=== PATIENT | female | born 1940 | race Caucasian/White ===

== ENCOUNTER 2018-04-25 20:51 | Inpatient (IN) | payer MEDICARE, MEDICAID ==
--- NOTE | 2018-04-25 21:00 | ED Physician Chart ---
ED Chief Complaint/HPI - Patient Information Date Seen:: 04/25/18 Time Seen:: 20:56 Chief Complaint:: SCHIZOPHRENIA FOR GEROPSYCH EVAL History of Present Illness:: 77 YR OLD FEMALE WITH SCHIZOPHRENIA HERE FOR PARTH PSYCH EVAL ED Review of Systems - Review of Systems General/Constitutional: No fever, No chills, No weight loss, No weakness, No diaphoresis, No edema, No loss of appetite Skin: No skin lesions, No rash, No bruising Head: No headache, No light-headedness Eyes: No loss of vision, No pain, No diplopia ENT: No earache, No nasal drainage, No sore throat, No tinnitus Neck: No neck pain, No swelling, No thyromegaly, No stiffness, No mass noted Cardio Vascular: No chest pain, No palpitations, No PND, No orthopnea, No edema Pulmonary: No SOB, No cough, No sputum, No wheezing GI: No nausea, No vomiting, No diarrhea, No pain, No melena, No hematochezia, No constipation, No hematemesis G/U: No dysuria, No frequency, No hematuria Musculoskeletal: No bone or joint pain, No back pain, No muscle pain Endocrine: No polyuria, No polydipsia Psychiatric: No prior psych history, No depression, No anxiety, No suicidal ideation Hematopoietic: No bruising, No lymphadenopathy Allergic/Immuno: No urticaria, No angioedema Neurological: No syncope, No focal symptoms, No weakness, No paresthesia, No headache, No seizure, No dizziness, No confusion, No vertigo ED Past Medical History - Past Medical History Past Medical History: Other (SCHIZOPHRENIA SEE LIST) ED Physical Exam - Physical Examination General/Constitutional: Awake, Well-developed, well-nourished, Alert, No distress, GCS 15, Non-toxic appearing, Ambulatory Head: Atraumatic Eyes: Lids, conjuctiva normal, PERRL, EOMI Skin: Nl inspection, No rash, No skin lesions, No ecchymosis, Well hydrated, No lymphadenopathy ENMT: External ears, nose nl, Nasal exam nl, Lips, teeth, gums nl Neck: Nontender, Full ROM w/o pain, No JVD, No nuchal rigidity, No bruit, No mass, No stridor Respiratory: Nl effort/Exclusion, Clear to Auscultation, No Wheeze/Rhonchi/Rales Cardio Vascular: RRR, No murmur, gallop, rubs, NL S1 S2 GI: No tenderness/rebounding/guarding, No organomegaly, No hernia, Normal BS's, Nondistended, No mass/bruits, No McBurney tenderness : No CVA tenderness Extremities: No tenderness or effusion, Full ROM, normal strength in all extremities, No edema, Normal digits & nails Neuro/Psych: Alert/oriented, DTR's symmetric, Normal sensory exam, Normal motor strength, Judgement/insight normal, Mood normal, Normal gait, No focal deficits Misc: Normal back, No paraspinal tenderness ED Assessment - Assessment General Assessment: SCHIZOPHRENIA FOR EVALUATION ED Septic Shock - . Is Septic Shock (SBP<90, OR Lactate>4 mmol\L) present?: No ED Reassessment (Disposition) - Reassessment Reassessment Condition:: Unchanged - Diagnosis Diagnosis:: SCHIZOPHRENIA AGITATION - Patient Disposition Discharge/Transfer:: Acute Care w/in this hosp Admitted to:: Med/Surg Condition at Disposition:: Stable
[2018-04-25 21:36] LABS: % BASOPHILS 0.2 % (0.0-2.0); % EOSINOPHILS 2.1 % (0.0-5.0); % LYMPHOCYTES 34.6 % (20.0-50.0); % NEUTROPHILS 55.1 % (40.0-80.0); EOSINOPHILE ABSOLUTE 0.1 Th/cmm (0.1-0.4); HEMATOCRIT 43.3 % (41.0-60); HEMOGLOBIN 14.1 gm/dL (12-16); LYMPHOCYTE ABSOLUTE 2.3 Th/cmm (1.5-3.0); MEAN CELL VOLUME 91.6 fl (81-100); MEAN CORPUSCULAR HEMOGLOBIN 29.9 pg (27.0-31.0); MEAN CORPUSCULAR HGB CONC 32.6 pg (28.0-36.0); MEAN PLATELET VOLUME 7.3 fl; MONOCYTE ABSOLUTE 0.5 Th/cmm (0.3-1.0); NEUTROPHILE ABSOLUTE 3.7 Th/cmm (1.8-8.0); PLATELET COUNT 340 Th/cmm (150-400); RED BLOOD COUNT 4.72 Mil/cmm (3.80-5.20); WHITE BLOOD COUNT 6.6 Th/cmm (4.8-10.8)
[2018-04-25 21:50] LABS: ALB/GLOB RATIO 1.3 (1.0-1.8); ALKALINE PHOSPHATASE 55 U/L (34-104); ANION GAP 12.5 (7.0-16.0); BILIRUBIN,TOTAL 0.2 mg/dL (0.3-1.0); BUN - UREA NITROGEN 18 mg/dL (7-25); CALCIUM SERUM 9.7 mg/dL (8.6-10.3); CARBON DIOXIDE 26.2 mEq/L (21.0-31.0); CHLORIDE 103 mEq/L (98-107); CREATININE - SERUM 0.9 mg/dL (0.6-1.2); GLUCOSE 135 mg/dL (70-105); POTASSIUM SERUM 3.7 mEq/L (3.5-5.1); SGOT 19 U/L (13-39); SGPT/ALT 15 U/L (7-52); SODIUM SERUM 138 mEq/L (136-145); TOTAL PROTEIN,SERUM 7.2 gm/dL (6.0-8.3)
[2018-04-25 22:38] LABS: URINE SOURCE CLEAN C
[2018-04-25 22:48] LABS: URINE BILIRUBIN NEGATIVE (NEGATIVE); URINE BLOOD NEGATIVE (NEGATIVE); URINE GLUCOSE (UA) NEGATIVE (NEGATIVE); URINE KETONE NEGATIVE (NEGATIVE); URINE LEUKOCYTE ESTERASE NEGATIVE (NEGATIVE); URINE NITRATE NEGATIVE (NEGATIVE); URINE PROTEIN NEGATIVE (NEGATIVE); URINE UROBILINOGEN 0.2 E.U./dL (0.2 - 1.0)
[2018-04-25 22:52] LABS: URINE CLARITY CLEAR (CLEAR); URINE COLOR COLORLESS
[2018-04-25 22:53] LABS: URINE MICROSCOPIC INDICATED? NO
[2018-04-26 01:35] VITALS: BP 128/68
[2018-04-26] MEDS ORDERED: Maalox 30 mL Cup PO PRN (01:53)
[2018-04-26] MEDS ORDERED: Acetaminophen 500 MG TAB PO PRN (01:53)
[2018-04-26 02:28] LABS: CHOLESTEROL 182 mg/dL (<200); HDL -HIGH DENSITY LIPOPROTEIN 53 mg/dL (23-92); TRIGLYCERIDES 205 mg/dL (<150)
[2018-04-26] MEDS: Multivitamin w/ Minerals Tab PO SCH (09:40)
--- NOTE | 2018-04-27 02:49 | Psychiatric Evaluation ---
DATE OF SERVICE: 04/26/2018 IDENTIFYING DATA: The patient is a 77-year-old woman, resident of [facility]. Information obtained directly by interviewing the patient as well as reviewing the admission papers. The patient is admitted, begun on a voluntary basis because of her agitation. The patient is reported to have been attempting to push the staff members while assisting in changing the ____ and gathering dirty clothes and ____ from the closet. The patient is becoming increasingly agitated and holding the trash and does not want to follow the directions and on that basis, the patient has been referred over here for further care. PAST PSYCHIATRIC HISTORY: The patient is reported to have been followed up by Dr. Gary Canela on an outpatient basis and has been treated with Depakote and Abilify. MEDICAL HISTORY AND PHYSICAL EXAMINATION: Requested to done by Dr. Silva. The patient's medical history significant for multiple medical problems like hyperlipidemia, GERD, COPD and arthritis. SUBSTANCE ABUSE HISTORY: None. MENTAL STATUS EXAMINATION: The patient is a 77-year-old woman looking her stated age, superficially cooperative. Eye contact is poor. Mood is noted to be irritable. Affect is constricted. Insight and judgment at this time are noted to be impaired. Impulse control is noted to be limited. Coping skills are noted to be limited. The patient has been getting easily irritable and is stating that there is no reason for her to be in here and she should be out. The patient's coping skills at this time are noted to be very poor. No side effects to the medications are noted. The patient is stating that she has been doing fairly well and could not figure it out why she has to be here. The patient is getting easily agitated. The patient's sleep is noted to be very poor. Appetite is noted to be fair at this time. The patient has short-term memory deficits, but long-term memory seems to be fair at this time. The patient is fully aware that she is at [facility]. IMPRESSION: AXIS I: Psychotic disorder, not otherwise specified. AXIS IB: Dementia and behavioral change, secondary trait. AXIS II: None. AXIS III: As per Dr. Silva. IMMEDIATE TREATMENT PLAN: The patient is going to be placed on the Seroquel and the patient is going to be encouraged to verbalize the concerns rather than to act out. The patient is going to be continued on the Depakote. ESTIMATED LENGTH OF STAY: 3-5 days. DISCHARGE CRITERIA: When the patient is no longer a threat to self or others and be able to cope up with the stress. JOB# [id number]
--- NOTE | 2018-04-27 03:56 | History & Physical ---
ADMIT DATE: 04/26/2018 CHIEF COMPLAINT: Agitation evaluation for her schizophrenia. HISTORY OF PRESENT ILLNESS: The patient is a 77-year-old female with a past medical history of schizophrenia, dementia, brought in from nursing facility for agitation. PAST MEDICAL HISTORY: Schizophrenia, dementia. MEDICATIONS: Per medication reconciliation sheet. ALLERGIES: NKDA. SOCIAL HISTORY: The patient lives in a nursing facility. REVIEW OF SYSTEMS: The patient was unable to give any meaningful history. FAMILY HISTORY: Not available. PHYSICAL EXAMINATION: VITAL SIGNS: Shows temperature is 97.6, pulse 100, respirations 20, blood pressure 139/58. GENERAL: The patient is comfortable lying in the bed, not in acute distress. HEENT: Head is normocephalic, atraumatic. Oral cavity moist, pink tongue. NECK: Supple, no JVD, no carotid bruit. Trachea midline. CHEST: Bilateral breath sounds. No crackles or wheezing. HEART: S1, S2 within normal limits. Regular rhythm. No murmur, no gallop. ABDOMEN: Soft, nontender, nondistended. Bowel sounds present. EXTREMITIES: No cyanosis, no clubbing, no edema. LABORATORY DATA: Current lab shows WBC 6600, hemoglobin 14.1, hematocrit 43.3, platelets are 340,000. Sodium 138, potassium 3.7, chloride 103, bicarbonate is 26, BUN is 18, creatinine 0.9, glucose 135. Urinalysis showed for negative nitrite, negative leukoesterase. Blood culture 2 sets are negative. IMPRESSION: 1. Agitation. 2. Schizophrenia. 3. Hypertension. PLAN: We will start Vasotec 5 mg p.o. daily and go from there. Check labs in the morning. JOB# [id number]
[2018-04-27] MEDS: Multivitamin w/ Minerals Tab PO SCH (09:38)
--- NOTE | 2018-04-27 15:56 | Infectious Disease Prog Note ---
Infectious Disease Subjective - Review of Systems Service Date: 04/27/18 Subjective: There is no new change, no fever,. Infectious Disease Objective - Results Result Diagrams: 04/25/18 21:21 04/25/18 21:21 Recent Labs: Laboratory Last Values WBC 6.6 Th/cmm (4.8-10.8) 04/25/18 21:21 RBC 4.72 Mil/cmm (3.80-5.20) 04/25/18 21:21 Hgb 14.1 gm/dL (12-16) 04/25/18 21:21 Hct 43.3 % (41.0-60) 04/25/18 21:21 MCV 91.6 fl (81-100) 04/25/18 21:21 MCH 29.9 pg (27.0-31.0) 04/25/18 21:21 MCHC Differential 32.6 pg (28.0-36.0) 04/25/18 21:21 RDW 13.0 % (11.5-20.0) 04/25/18 21:21 Plt Count 340 Th/cmm (150-400) 04/25/18 21:21 MPV 7.3 fl 04/25/18 21:21 Neutrophils % 55.1 % (40.0-80.0) 04/25/18 21:21 Lymphocytes % 34.6 % (20.0-50.0) 04/25/18 21:21 Monocytes % 8.0 % (2.0-10.0) 04/25/18 21:21 Eosinophils % 2.1 % (0.0-5.0) 04/25/18 21:21 Basophils % 0.2 % (0.0-2.0) 04/25/18 21:21 Sodium 138 mEq/L (136-145) 04/25/18 21:21 Potassium 3.7 mEq/L (3.5-5.1) 04/25/18 21:21 Chloride 103 mEq/L (98-107) 04/25/18 21:21 Carbon Dioxide 26.2 mEq/L (21.0-31.0) 04/25/18 21:21 Anion Gap 12.5 (7.0-16.0) 04/25/18 21:21 BUN 18 mg/dL (7-25) 04/25/18 21:21 Creatinine 0.9 mg/dL (0.6-1.2) 04/25/18 21:21 Est GFR ( Amer) TNP 04/25/18 21:21 Est GFR (Non-Af Amer) TNP 04/25/18 21:21 BUN/Creatinine Ratio 20.0 04/25/18 21:21 Glucose 135 mg/dL (70-105) H 04/25/18 21:21 Calcium 9.7 mg/dL (8.6-10.3) 04/25/18 21:21 Total Bilirubin 0.2 mg/dL (0.3-1.0) L 04/25/18 21:21 AST 19 U/L (13-39) 04/25/18 21:21 ALT 15 U/L (7-52) 04/25/18 21:21 Alkaline Phosphatase 55 U/L (34-104) 04/25/18 21:21 Total Protein 7.2 gm/dL (6.0-8.3) 04/25/18 21:21 Albumin 4.0 gm/dL (3.7-5.3) 04/25/18 21:21 Globulin 3.2 gm/dL 04/25/18 21:21 Albumin/Globulin Ratio 1.3 (1.0-1.8) 04/25/18 21:21 Triglycerides 205 mg/dL (<150) H 04/25/18 21:21 Cholesterol 182 mg/dL (<200) 04/25/18 21:21 LDL Cholesterol Direct 99 mg/dL (75-193) 04/25/18 21:21 HDL Cholesterol 53 mg/dL (23-92) 04/25/18 21:21 TSH 2.05 uIU/ml (0.34-5.60) 04/27/18 07:45 Urine Source CLEAN C 04/25/18 22:20 Urine Color COLORLESS 04/25/18 22:20 Urine Clarity CLEAR (CLEAR) 04/25/18 22:20 Urine pH 7.0 (4.6 - 8.0) 04/25/18 22:20 Ur Specific [place] <= 1.005 (1.005-1.030) 04/25/18 22:20 Urine Protein NEGATIVE mg/dL (NEGATIVE) 04/25/18 22:20 Urine Glucose (UA) NEGATIVE mg/dL (NEGATIVE) 04/25/18 22:20 Urine Ketones NEGATIVE mg/dL (NEGATIVE) 04/25/18 22:20 Urine Blood NEGATIVE (NEGATIVE) 04/25/18 22:20 Urine Nitrate NEGATIVE (NEGATIVE) 04/25/18 22:20 Urine Bilirubin NEGATIVE (NEGATIVE) 04/25/18 22:20 Urine Urobilinogen 0.2 E.U./dL (0.2 - 1.0) 04/25/18 22:20 Ur Leukocyte Esterase NEGATIVE (NEGATIVE) 04/25/18 22:20 Valproic Acid < 10.0 ug/mL (50.0-100.0) L 04/27/18 07:45 - Physical Exam Vitals and I&O: Vital Signs Temp 97.6 F 04/27/18 14:00 Pulse 99 04/27/18 14:00 Resp 20 04/27/18 14:00 BP 109/50 04/27/18 14:00 Pulse Ox 98 04/27/18 14:00 Intake & Output 04/26/18 04/27/18 04/27/18 18:59 06:59 18:59 Intake Total 900 240 Balance 900 240 Intake: Oral 900 240 Other: # Voids 4 3 # Bowel Movements 1 0 Stool Characteristics Soft Soft Active Medications: Current Medications Acetaminophen (Tylenol) 650 mg PO Q4HR PRN PRN Reason: Pain or Fever >101 Stop: 06/25/18 01:52 Acetaminophen (Tylenol Extra Strength) 1,000 mg PO Q4HR PRN PRN Reason: Pain (Moderate) Stop: 06/25/18 01:52 Al Hydrox/Mg Hydrox/Simethicone (Maalox) 30 ml PO Q4HR PRN PRN Reason: GI DISTRESS Stop: 06/25/18 01:52 Bisacodyl (Dulcolax 10 Mg Supp) 10 mg RC DAILY PRN PRN Reason: Constipation Stop: 06/25/18 01:52 Divalproex Sodium (Depakote Er) 500 mg PO DAILY [facility]; Protocol Stop: 06/24/18 22:59 Last Admin: 04/27/18 09:36 Dose: 500 mg Docusate Sodium (Colace) 250 mg PO DAILY [facility] Stop: 06/25/18 08:59 Last Admin: 04/27/18 09:47 Dose: Not Given Enalapril Maleate (Vasotec) 5 mg PO DAILY [facility] Stop: 06/26/18 08:59 Last Admin: 04/27/18 09:36 Dose: 5 mg Hydrochlorothiazide (Hctz) 25 mg PO DAILY [facility] Stop: 06/26/18 08:59 Last Admin: 04/27/18 09:36 Dose: 25 mg Lorazepam (Ativan) 0.5 mg PO Q4HR PRN; Protocol PRN Reason: Anxiety Stop: 05/25/18 22:59 Miscellaneous (Fenofibrate [Fenofibrate]) 54 mg PO DAILY [facility] Stop: 06/25/18 08:59 Quetiapine Fumarate (Seroquel) 12.5 mg PO HS [facility]; Protocol Stop: 06/25/18 20:59 Zolpidem Tartrate (Ambien) 5 mg PO HS PRN PRN Reason: Insomnia Stop: 06/24/18 22:59 Last Admin: 04/26/18 20:16 Dose: 5 mg General: no acute distress, well developed, well nourished HEENT: atraumatic, normocephalic, PERRLA Neck: supple, no thyromegaly Cardiovascular: S1S2, regular Lungs: clear to auscultation bilaterally, clear to percussion Abdomen: soft, no tender, no distended Extremities: no cyanosis, no clubbing, no edema Neurological: awake, alert, oriented Infectious Disease Assmt/Plan - Assessment Assessment: Continue the same treatment plan. - Plan Plan: Continue the same treatment plan.
--- NOTE | 2018-04-28 02:31 | Progress Notes ---
DATE: 04/27/2018 PSYCHIATRIC PROGRESS NOTE SUBJECTIVE: Staff was spoken to. The patient is interviewed. Mood is noted to be irritable. Affect is constricted. Insight and judgment noted to be still impaired. Impulse control is noted to be limited. Coping skills are noted to be limited. The patient is very confused at this time and has been constantly asking that she needs to be getting out of here. She has a plane waiting over there to take her to the detention facility. The patient is currently on 12.5 mg of the Seroquel and 500 mg of Depakote at bedtime. The patient has been able to tolerate the medication. ASSESSMENT: The patient is still confused and irritable. PLAN: To continue the patient with the supportive therapy, encouraged the patient to verbalize the concerns rather than to act out. JOB# [id number]
[2018-04-28] MEDS: Multivitamin w/ Minerals Tab PO SCH (09:29)
--- NOTE | 2018-04-28 09:59 | Consultation ---
DATE OF CONSULTATION: 04/27/2018 REFERRING PHYSICIAN: Ned Escoto MD TYPE OF CONSULTATION: Psychology. HISTORY OF PRESENT ILLNESS: The patient is a 77-year-old female. The patient is a resident of [facility]. The following is by record review and by the patient's self-report. The patient is being admitted due to increased agitation. The staff at the patient's facility report that she has attempted to push staff members and striking out at staff during care. The patient appears to be selectively mute as well as agitated and somewhat resistant during this clinical interview. PAST MEDICAL HISTORY: Please see history and physical by Dr. Silva. PAST PSYCHIATRIC HISTORY: The patient is being seen by Dr. Gary Curry at her placement. The patient has a history of dementia. There is a history of previous hospitalizations. SUBSTANCE ABUSE HISTORY: The patient did not answer these questions. PSYCHOSOCIAL HISTORY: The patient did not answer questions about occupational or educational history or yazidi affiliation. The patient did not answer questions about history of physical or sexual abuse or current legal problems. The patient did not answer the question regarding family members involved in her care. MENTAL STATUS EXAMINATION: The patient appears to be her stated age. The patient's attitude is superficially cooperative. Eye contact is poor. Speech is delayed. Mood is irritable. Affect is constricted. Thought process shows to be confused. The patient is stating that there is no reason for her to be hospitalized. The patient insists that she is doing fine. The patient denied any auditory or visual hallucinations. She denies any suicidal ideation, plan or intention. Impulse control is limited. Concentration is fair. The patient appears to have some short-term memory deficits. Long-term memory seems to be grossly intact. Sensorium is alert and oriented x 3. The patient did not participate in the interpretation of proverbs. Insight is poor. Judgment is compromised. DIAGNOSTIC IMPRESSION: AXIS I: 1. Psychotic disorder, not otherwise specified. 2. Dementia with behavioral disturbance. AXIS II: Deferred. AXIS III: Per Dr. Silva. TREATMENT PLAN: The patient has been seen by Dr. Escoto for psychiatric evaluation and for the management of the patient's psychotropic medications. We will provide supportive psychotherapy to include reality orientation, differentiation and integration. We will provide de-escalation as well as limit setting. We will encourage the patient to be able to demonstrate emotional and self-regulation prior to her discharge. We will provide coping skills and strategies for phase of life issues. We will encourage the patient and provide motivational enhancement for her to become compliant and stay compliant with all aspects of her care and treatment. Thank you, Dr. Escoto for this consult and the opportunity to participate in this patient's care. JOB# [id number] CAMILA
--- NOTE | 2018-04-28 14:12 | Infectious Disease Prog Note ---
Infectious Disease Subjective - Review of Systems Service Date: 04/28/18 Subjective: There is no new change, no fever,. Infectious Disease Objective - Results Result Diagrams: 04/25/18 21:21 04/25/18 21:21 Recent Labs: Laboratory Last Values WBC 6.6 Th/cmm (4.8-10.8) 04/25/18 21:21 RBC 4.72 Mil/cmm (3.80-5.20) 04/25/18 21:21 Hgb 14.1 gm/dL (12-16) 04/25/18 21:21 Hct 43.3 % (41.0-60) 04/25/18 21:21 MCV 91.6 fl (81-100) 04/25/18 21:21 MCH 29.9 pg (27.0-31.0) 04/25/18 21:21 MCHC Differential 32.6 pg (28.0-36.0) 04/25/18 21:21 RDW 13.0 % (11.5-20.0) 04/25/18 21:21 Plt Count 340 Th/cmm (150-400) 04/25/18 21:21 MPV 7.3 fl 04/25/18 21:21 Neutrophils % 55.1 % (40.0-80.0) 04/25/18 21:21 Lymphocytes % 34.6 % (20.0-50.0) 04/25/18 21:21 Monocytes % 8.0 % (2.0-10.0) 04/25/18 21:21 Eosinophils % 2.1 % (0.0-5.0) 04/25/18 21:21 Basophils % 0.2 % (0.0-2.0) 04/25/18 21:21 Sodium 138 mEq/L (136-145) 04/25/18 21:21 Potassium 3.7 mEq/L (3.5-5.1) 04/25/18 21:21 Chloride 103 mEq/L (98-107) 04/25/18 21:21 Carbon Dioxide 26.2 mEq/L (21.0-31.0) 04/25/18 21:21 Anion Gap 12.5 (7.0-16.0) 04/25/18 21:21 BUN 18 mg/dL (7-25) 04/25/18 21:21 Creatinine 0.9 mg/dL (0.6-1.2) 04/25/18 21:21 Est GFR ( Amer) TNP 04/25/18 21:21 Est GFR (Non-Af Amer) TNP 04/25/18 21:21 BUN/Creatinine Ratio 20.0 04/25/18 21:21 Glucose 135 mg/dL (70-105) H 04/25/18 21:21 Calcium 9.7 mg/dL (8.6-10.3) 04/25/18 21:21 Total Bilirubin 0.2 mg/dL (0.3-1.0) L 04/25/18 21:21 AST 19 U/L (13-39) 04/25/18 21:21 ALT 15 U/L (7-52) 04/25/18 21:21 Alkaline Phosphatase 55 U/L (34-104) 04/25/18 21:21 Total Protein 7.2 gm/dL (6.0-8.3) 04/25/18 21:21 Albumin 4.0 gm/dL (3.7-5.3) 04/25/18 21:21 Globulin 3.2 gm/dL 04/25/18 21:21 Albumin/Globulin Ratio 1.3 (1.0-1.8) 04/25/18 21:21 Triglycerides 205 mg/dL (<150) H 04/25/18 21:21 Cholesterol 182 mg/dL (<200) 04/25/18 21:21 LDL Cholesterol Direct 99 mg/dL (75-193) 04/25/18 21:21 HDL Cholesterol 53 mg/dL (23-92) 04/25/18 21:21 Vitamin B12 264 pg/mL (232-1245) 04/27/18 07:45 TSH 2.05 uIU/ml (0.34-5.60) 04/27/18 07:45 Urine Source CLEAN C 04/25/18 22:20 Urine Color COLORLESS 04/25/18 22:20 Urine Clarity CLEAR (CLEAR) 04/25/18 22:20 Urine pH 7.0 (4.6 - 8.0) 04/25/18 22:20 Ur Specific [place] <= 1.005 (1.005-1.030) 04/25/18 22:20 Urine Protein NEGATIVE mg/dL (NEGATIVE) 04/25/18 22:20 Urine Glucose (UA) NEGATIVE mg/dL (NEGATIVE) 04/25/18 22:20 Urine Ketones NEGATIVE mg/dL (NEGATIVE) 04/25/18 22:20 Urine Blood NEGATIVE (NEGATIVE) 04/25/18 22:20 Urine Nitrate NEGATIVE (NEGATIVE) 04/25/18 22:20 Urine Bilirubin NEGATIVE (NEGATIVE) 04/25/18 22:20 Urine Urobilinogen 0.2 E.U./dL (0.2 - 1.0) 04/25/18 22:20 Ur Leukocyte Esterase NEGATIVE (NEGATIVE) 04/25/18 22:20 Valproic Acid < 10.0 ug/mL (50.0-100.0) L 04/27/18 07:45 RPR NONREACTIVE (NONREACTIVE) 04/27/18 07:45 - Physical Exam Vitals and I&O: Vital Signs Temp 97.8 F 04/28/18 05:30 Pulse 98 04/28/18 09:28 Resp 20 04/28/18 08:00 BP 132/84 04/28/18 09:29 Pulse Ox 100 04/28/18 05:30 Intake & Output 04/27/18 04/28/18 04/28/18 18:59 06:59 18:59 Intake Total 960 120 Balance 960 120 Intake: Oral 960 120 Other: # Voids 3 2 # Bowel Movements 1 0 Stool Characteristics Soft Soft Soft Active Medications: Current Medications Acetaminophen (Tylenol) 650 mg PO Q4HR PRN PRN Reason: Pain or Fever >101 Stop: 06/25/18 01:52 Acetaminophen (Tylenol Extra Strength) 1,000 mg PO Q4HR PRN PRN Reason: Pain (Moderate) Stop: 06/25/18 01:52 Al Hydrox/Mg Hydrox/Simethicone (Maalox) 30 ml PO Q4HR PRN PRN Reason: GI DISTRESS Stop: 06/25/18 01:52 Bisacodyl (Dulcolax 10 Mg Supp) 10 mg RC DAILY PRN PRN Reason: Constipation Stop: 06/25/18 01:52 Divalproex Sodium (Depakote Er) 500 mg PO DAILY [facility]; Protocol Stop: 06/24/18 22:59 Last Admin: 04/28/18 09:27 Dose: 500 mg Docusate Sodium (Colace) 250 mg PO DAILY [facility] Stop: 06/25/18 08:59 Last Admin: 04/28/18 09:31 Dose: Not Given Enalapril Maleate (Vasotec) 5 mg PO DAILY [facility] Stop: 06/26/18 08:59 Last Admin: 04/28/18 09:28 Dose: 5 mg Hydrochlorothiazide (Hctz) 25 mg PO DAILY [facility] Stop: 06/26/18 08:59 Last Admin: 04/28/18 09:29 Dose: 25 mg Lorazepam (Ativan) 0.5 mg PO Q4HR PRN; Protocol PRN Reason: Anxiety Stop: 05/25/18 22:59 Miscellaneous (Fenofibrate [Fenofibrate]) 54 mg PO DAILY [facility] Stop: 06/25/18 08:59 Quetiapine Fumarate (Seroquel) 12.5 mg PO HS [facility]; Protocol Stop: 06/25/18 20:59 Last Admin: 04/27/18 20:33 Dose: 12.5 mg Zolpidem Tartrate (Ambien) 5 mg PO HS PRN PRN Reason: Insomnia Stop: 06/24/18 22:59 Last Admin: 04/27/18 20:33 Dose: 5 mg General: no acute distress, well developed, well nourished HEENT: atraumatic, normocephalic, PERRLA, EOMI, moist mucous membrane Neck: supple, no thyromegaly, no lymphadenopathy, no rigid, no lines, no tracheostomy Cardiovascular: S1S2, regular, no systolic murmur, no thrills, no gallops Lungs: clear to auscultation bilaterally, clear to percussion Abdomen: soft, bowel sounds, no tender, no distended, no hepatomegaly, no splenomegaly Extremities: no cyanosis, no clubbing, no edema Neurological: awake, alert, oriented Skin: intact Infectious Disease Assmt/Plan - Assessment Assessment: Continue the same treatment plan. - Plan Plan: Continue the same treatment plan. Nutritional Asmnt/Malnutr-PDOC - Dietary Evaluation Malnutrition Findings (Please click <Entered> for more info): Nutritional Asmnt/Malnutrition Start: 04/28/18 13: 19 Text: Status: Active Freq: Protocol: Document 04/28/18 13:20 [email or web address] (Rec: 04/28/18 13:26 [email or web address]) Nutritional Asmnt/Malnutrition Patient General Information Nutritional Screening Moderate Risk Diagnosis psychosis Pertinent Medical Hx/Surgical Hx schizophrenia, dementia Subjective Information Pt was alert, sitting in bed at time of visit. Pt states she is only here for tests and wants to go home. PO intake is 100% per EMR. Current Diet Order/ Nutrition Support low fiber, low fat, low cholesterol, low fat milk Pertinent Medications colace, seroquel, ambien Pertinent Labs 04/25 Glucose 135, triglycerides 205 Nutritional Hx/Data Height 1.57 m Height (Calculated Centimeters) 157.5 Current Weight (lbs) 58.06 kg Weight (Calculated Kilograms) 58.1 Weight (Calculated Grams) 61462.8 [place] Body Weight 110 Body Mass Index (BMI) 23.3 Weight Status Approriate GI Symptoms GI Symptoms None Last BM 04/27 Difficult in: None Food Allergies No Skin Integrity/Comment: [email or web address] 18 Current %PO Good (75-100%) Estimated Nutritional Goals BEE in Kcals: Using Current wt Calories/Kcals/Kg 25-30 Kcals Calculated 7793-2048 Protein: Using Current wt Protein g/k.8-1 Protein Calculated 46-58 Fluid: ml 8356-9671 (1ml/kcal) Nutritional Problem No current Nutrition Prob Problem N/A Malnutrition Alert Is there a minimum of two criteria No selected? Query Text:Check all the applicable criteria. A minimum of two criteria are recommended for diagnosis of either severe or non-severe malnutrition. Malnutrition Related to Morbid Obesity Malnutrition related to morbid obesity No Intervention/Recommendation Comments 1. Continue with regular diet as ordered 2. Monitor PO intake, wt, labs and skin integrity 3. F/U as low risk in 7 days, 05/05 Expected Outcomes/Goals Expected Outcomes/Goals Goal: PO intake to meet at least 75% of nutritional needs .
[2018-04-29] MEDS: Multivitamin w/ Minerals Tab PO SCH (08:22)
--- NOTE | 2018-04-29 09:51 | Progress Notes ---
DATE: 04/28/2018 SUBJECTIVE: Staff was spoken to. The patient is interviewed. Mood is noted to be irritable. Affect is constricted. Insight and judgment are noted to be still impaired. The patient has been constantly asking when she is going to be leaving. The patient has been getting easily frustrated. Insight and judgment at this time are noted to be still impaired. Impulse control is noted to be limited. The patient has been currently on Depakote and Seroquel, which is being given at 12.5 mg and it is going to be increased to 25 mg at bedtime and the patient is going to be followed up with the supportive therapy. ASSESSMENT: The patient is still impulsive. PLAN: To continue the patient with supportive therapy, encouraged the patient to verbalize the concerns rather than to act out. JOB# [id number]
--- NOTE | 2018-04-30 00:09 | Progress Notes ---
DATE: 04/29/2018 PSYCHIATRIC PROGRESS NOTE SUBJECTIVE: Staff was spoken to. The patient is interviewed. Mood is noted to be irritable. Affect is constricted. The patient is pacing on the unit. Coping skills at this time are noted to be extremely poor. Sleep and appetite also noted to be very poor. The patient has been insisting that we need to call the police for her to get out of here. ASSESSMENT: The patient is still paranoid and impulsive. PLAN: To continue the patient with the supportive therapy and followup. JOB# [id number]
[2018-04-30] MEDS: Fenofibrate, Micronized 134 mg Cap PO SCH (09:41)
[2018-04-30] MEDS: Multivitamin w/ Minerals Tab PO SCH (09:41)
--- NOTE | 2018-04-30 22:55 | Progress Notes ---
DATE: 04/30/2018 SUBJECTIVE: Staff was spoken to. The patient is interviewed. Mood is noted to be irritable. Affect is constricted. The patient's insight and judgment are noted to be still impaired. Impulse control is noted to be limited. The patient is currently on the valproic acid and Seroquel and has been able to tolerate the medication, but the patient has been focused on getting back to the [place]. ASSESSMENT: The patient is still psychotic and impulsive. PLAN: To continue the patient with the supportive therapy and current medications and followup. JOB# [id number]
[2018-05-01] MEDS: Multivitamin w/ Minerals Tab PO SCH (09:21)
--- NOTE | 2018-05-01 21:51 | Progress Notes ---
DATE: 05/01/[address] Escoto. SUBJECTIVE: She is a 77-year-old female, who was brought in here after the patient began presenting very agitated. She had attempted to push down staff members in a snf. She has a diagnosis of dementia and unspecified psychosis. HOSPITAL COURSE: The patient is currently being treated with Depakote 500 mg at bedtime, Vasotec, hydrochlorothiazide, TriCor, lorazepam as needed, Seroquel 25 mg p.o. at bedtime, and Ambien as needed. Nursing staff reported the patient continue to be have lot of redirection, wanders around the unit, pacing. Today on [id number] evaluation being mostly internally preoccupied and disengaged in the interview. ASSESSMENT AND PLAN: The patient with a history of severe dementia with behavioral disturbance and psychosis. Currently on Depakote and Seroquel. Tolerating medications well without complications or side effects of medication. We will continue monitoring and evaluating as medication continue to build steady state in her system. JOB# [id number]
[2018-05-02] MEDS: Fenofibrate, Micronized 134 mg Cap PO SCH (08:51)
[2018-05-02] MEDS: Multivitamin w/ Minerals Tab PO SCH (08:51)
[2018-05-03] MEDS: Multivitamin w/ Minerals Tab PO SCH (08:20)
--- NOTE | 2018-05-03 17:39 | Internal Medicine Prog Note ---
Internal Medicine Objective - Results Result Diagrams: 04/25/18 21:21 04/25/18 21:21 Recent Labs: Laboratory Last Values WBC 6.6 Th/cmm (4.8-10.8) 04/25/18 21:21 RBC 4.72 Mil/cmm (3.80-5.20) 04/25/18 21:21 Hgb 14.1 gm/dL (12-16) 04/25/18 21:21 Hct 43.3 % (41.0-60) 04/25/18 21:21 MCV 91.6 fl (81-100) 04/25/18 21:21 MCH 29.9 pg (27.0-31.0) 04/25/18 21:21 MCHC Differential 32.6 pg (28.0-36.0) 04/25/18 21:21 RDW 13.0 % (11.5-20.0) 04/25/18 21:21 Plt Count 340 Th/cmm (150-400) 04/25/18 21:21 MPV 7.3 fl 04/25/18 21:21 Neutrophils % 55.1 % (40.0-80.0) 04/25/18 21:21 Lymphocytes % 34.6 % (20.0-50.0) 04/25/18 21:21 Monocytes % 8.0 % (2.0-10.0) 04/25/18 21:21 Eosinophils % 2.1 % (0.0-5.0) 04/25/18 21:21 Basophils % 0.2 % (0.0-2.0) 04/25/18 21:21 Sodium 138 mEq/L (136-145) 04/25/18 21:21 Potassium 3.7 mEq/L (3.5-5.1) 04/25/18 21:21 Chloride 103 mEq/L (98-107) 04/25/18 21:21 Carbon Dioxide 26.2 mEq/L (21.0-31.0) 04/25/18 21:21 Anion Gap 12.5 (7.0-16.0) 04/25/18 21:21 BUN 18 mg/dL (7-25) 04/25/18 21:21 Creatinine 0.9 mg/dL (0.6-1.2) 04/25/18 21:21 Est GFR ( Amer) TNP 04/25/18 21:21 Est GFR (Non-Af Amer) TNP 04/25/18 21:21 BUN/Creatinine Ratio 20.0 04/25/18 21:21 Glucose 135 mg/dL (70-105) H 04/25/18 21:21 Calcium 9.7 mg/dL (8.6-10.3) 04/25/18 21:21 Total Bilirubin 0.2 mg/dL (0.3-1.0) L 04/25/18 21:21 AST 19 U/L (13-39) 04/25/18 21:21 ALT 15 U/L (7-52) 04/25/18 21:21 Alkaline Phosphatase 55 U/L (34-104) 04/25/18 21:21 Total Protein 7.2 gm/dL (6.0-8.3) 04/25/18 21:21 Albumin 4.0 gm/dL (3.7-5.3) 04/25/18 21:21 Globulin 3.2 gm/dL 04/25/18 21:21 Albumin/Globulin Ratio 1.3 (1.0-1.8) 04/25/18 21:21 Triglycerides 205 mg/dL (<150) H 04/25/18 21:21 Cholesterol 182 mg/dL (<200) 04/25/18 21:21 LDL Cholesterol Direct 99 mg/dL (75-193) 04/25/18 21:21 HDL Cholesterol 53 mg/dL (23-92) 04/25/18 21:21 Vitamin B12 264 pg/mL (232-1245) 04/27/18 07:45 TSH 2.05 uIU/ml (0.34-5.60) 04/27/18 07:45 Urine Source CLEAN C 04/25/18 22:20 Urine Color COLORLESS 04/25/18 22:20 Urine Clarity CLEAR (CLEAR) 04/25/18 22:20 Urine pH 7.0 (4.6 - 8.0) 04/25/18 22:20 Ur Specific [place] <= 1.005 (1.005-1.030) 04/25/18 22:20 Urine Protein NEGATIVE mg/dL (NEGATIVE) 04/25/18 22:20 Urine Glucose (UA) NEGATIVE mg/dL (NEGATIVE) 04/25/18 22:20 Urine Ketones NEGATIVE mg/dL (NEGATIVE) 04/25/18 22:20 Urine Blood NEGATIVE (NEGATIVE) 04/25/18 22:20 Urine Nitrate NEGATIVE (NEGATIVE) 04/25/18 22:20 Urine Bilirubin NEGATIVE (NEGATIVE) 04/25/18 22:20 Urine Urobilinogen 0.2 E.U./dL (0.2 - 1.0) 04/25/18 22:20 Ur Leukocyte Esterase NEGATIVE (NEGATIVE) 04/25/18 22:20 Valproic Acid < 10.0 ug/mL (50.0-100.0) L 04/27/18 07:45 RPR NONREACTIVE (NONREACTIVE) 04/27/18 07:45 - Physical Exam Vitals and I&O: Vital Signs Temp 97.2 F 05/03/18 14:00 Pulse 100 05/03/18 14:00 Resp 20 05/03/18 14:00 BP 157/72 05/03/18 14:00 Pulse Ox 99 05/03/18 14:00 Intake & Output 05/02/18 05/03/18 05/03/18 18:59 06:59 18:59 Intake Total 1600 240 Balance 1600 240 Intake: Oral 1600 240 Other: # Voids 4 2 # Bowel Movements 1 Stool Characteristics Soft Soft Soft Active Medications: Current Medications Acetaminophen (Tylenol) 650 mg PO Q4HR PRN PRN Reason: Pain or Fever >101 Stop: 06/25/18 01:52 Acetaminophen (Tylenol Extra Strength) 1,000 mg PO Q4HR PRN PRN Reason: Pain (Moderate) Stop: 06/25/18 01:52 Al Hydrox/Mg Hydrox/Simethicone (Maalox) 30 ml PO Q4HR PRN PRN Reason: GI DISTRESS Stop: 06/25/18 01:52 Bisacodyl (Dulcolax 10 Mg Supp) 10 mg RC DAILY PRN PRN Reason: Constipation Stop: 06/25/18 01:52 Divalproex Sodium (Depakote Er) 500 mg PO DAILY LAURIE; Protocol Stop: 06/24/18 22:59 Last Admin: 05/03/18 08:18 Dose: 500 mg Docusate Sodium (Colace) 250 mg PO DAILY LAURIE Stop: 06/25/18 08:59 Last Admin: 05/03/18 08:19 Dose: Not Given Enalapril Maleate (Vasotec) 5 mg PO DAILY LAURIE Stop: 06/26/18 08:59 Last Admin: 05/03/18 08:19 Dose: 5 mg Fenofibrate (Tricor) 134 mg PO QOD LAURIE Stop: 06/29/18 08:59 Last Admin: 05/02/18 08:51 Dose: 134 mg Hydrochlorothiazide (Hctz) 25 mg PO DAILY LAURIE Stop: 06/26/18 08:59 Last Admin: 05/03/18 08:19 Dose: 25 mg Lorazepam (Ativan) 0.5 mg PO Q4HR PRN; Protocol PRN Reason: Anxiety Stop: 05/25/18 22:59 Quetiapine Fumarate (Seroquel) 25 mg PO HS LAURIE; Protocol Stop: 06/27/18 20:59 Last Admin: 05/02/18 21:03 Dose: 25 mg Zolpidem Tartrate (Ambien) 5 mg PO HS PRN PRN Reason: Insomnia Stop: 06/24/18 22:59 Last Admin: 05/01/18 21:27 Dose: 5 mg Nutritional Asmnt/Malnutr-PDOC - Dietary Evaluation Malnutrition Findings (Please click <Entered> for more info): Nutritional Asmnt/Malnutrition Start: 04/28/18 13: 19 Text: Status: Complete Freq: Protocol: Document 04/28/18 13:20 [email or web address] (Rec: 04/28/18 13:26 [email or web address]) Nutritional Asmnt/Malnutrition Patient General Information Nutritional Screening Moderate Risk Diagnosis psychosis Pertinent Medical Hx/Surgical Hx schizophrenia, dementia Subjective Information Pt was alert, sitting in bed at time of visit. Pt states she is only here for tests and wants to go home. PO intake is 100% per EMR. Current Diet Order/ Nutrition Support low fiber, low fat, low cholesterol, low fat milk Pertinent Medications colace, seroquel, ambien Pertinent Labs 04/25 Glucose 135, triglycerides 205 Nutritional Hx/Data Height 1.57 m Height (Calculated Centimeters) 157.5 Current Weight (lbs) 58.06 kg Weight (Calculated Kilograms) 58.1 Weight (Calculated Grams) 75110.8 [place] Body Weight 110 Body Mass Index (BMI) 23.3 Weight Status Approriate GI Symptoms GI Symptoms None Last BM 04/27 Difficult in: None Food Allergies No Skin Integrity/Comment: georgina snow 18 Current %PO Good (75-100%) Estimated Nutritional Goals BEE in Kcals: Using Current wt Calories/Kcals/Kg 25-30 Kcals Calculated 4702-3549 Protein: Using Current wt Protein g/k.8-1 Protein Calculated 46-58 Fluid: ml 4085-5272 (1ml/kcal) Nutritional Problem No current Nutrition Prob Problem N/A Malnutrition Alert Is there a minimum of two criteria No selected? Query Text:Check all the applicable criteria. A minimum of two criteria are recommended for diagnosis of either severe or non-severe malnutrition. Malnutrition Related to Morbid Obesity Malnutrition related to morbid obesity No Intervention/Recommendation Comments 1. Continue with regular diet as ordered. Diet preference updated. 2. Monitor PO intake, wt, labs and skin integrity 3. F/U as low risk in 7 days, 05/05 Expected Outcomes/Goals Expected Outcomes/Goals Goal: PO intake to meet at least 75% of nutritional needs . Reviewed by Saniya Coronel RD
--- NOTE | 2018-05-03 18:45 | Progress Notes ---
DATE: 05/02/2018 The patient was seen and evaluated. The patient's chart reviewed. Covering for Dr. Escoto. Today on [id number] evaluation, the patient is observed to be a little more calmer. She has been wandering around the unit and pacing, and also noted to be internally preoccupied, although less intense. ASSESSMENT AND PLAN: We will continue with the primary psychiatrist's treatment plan, which includes Depakote and Seroquel as she continues to tolerate medications well and continue working very closely with her social work case manager for a safe disposition once the patient is further stable. JOB# [id number]
--- NOTE | 2018-05-04 01:34 | Progress Notes ---
DATE: 05/03/2018 SUBJECTIVE: Staff was spoken to. The patient is interviewed. Mood is noted to be irritable. Affect is constricted. Insight and judgment are noted to be still impaired. Impulse control is noted to be limited. Coping skills noted to be limited. The patient is getting easily agitated. The patient is currently on Seroquel, Depakote. The patient has been able to tolerate the medications. No side effects to the medications are noted. ASSESSMENT: The patient is still having mood swings. PLAN: To continue the patient with the supportive therapy, encouraged the patient to verbalize the concerns rather than to act out. JOB# [id number]
[2018-05-04] MEDS: Fenofibrate, Micronized 134 mg Cap PO SCH (09:14)
[2018-05-04] MEDS: Multivitamin w/ Minerals Tab PO SCH (09:14)
--- NOTE | 2018-05-04 21:07 | Progress Notes ---
DATE: 05/04/2018 SUBJECTIVE: Staff was spoken to. The patient is interviewed. Mood is noted to be anxious. Affect is appropriate. Not suicidal or homicidal. Insight and judgment are noted to be improving at this time. Impulse control is also noted to be fair. No side effects to the medications are noted. The patient has been able to verbalize the concerns rather than to act out. ASSESSMENT: The patient is stabilizing. PLAN: To continue the patient with the supportive therapy, encouraged the patient to verbalize the concerns rather than to act out. JOB# [id number]
== END 2018-05-04 12:30 | DRG 885 ==
LOC: ER 20:51 → MSI 22:29 → GERO 22:45
PROVIDERS: ADMIT Psychiatry & Neurology Psychiatry; ATTEND Psychiatry & Neurology Psychiatry
DX: F29 Unspecified psychosis not due to a substance or known physiological condition (principal); F03.91 Unspecified dementia, unspecified severity, with behavioral disturbance; I10 Essential (primary) hypertension; E78.5 Hyperlipidemia, unspecified; K21.9 Gastro-esophageal reflux disease without esophagitis; J44.9 Chronic obstructive pulmonary disease, unspecified; M19.90 Unspecified osteoarthritis, unspecified site
CPT/HCPCS: 36415-UA; 80053-TC; 80061-TC; 80164-TC; 81003-TC; 82607-90; 83036-90; 84443-TC; 85025-TC; 86592-TC; G0410; Z7610